=== PATIENT | female | born 1975 | race Caucasian/White ===

== ENCOUNTER 2018-03-15 08:45 | Inpatient (IN) | payer OTHER ==
[~2018-03-15] VITALS: Ht 157.5 cm; Wt 3.2 kg
[2018-03-15] MEDS ORDERED: PNV-FERROUS FU1 EACH PO (09:46)
== END 2018-03-21 11:43 | DRG 788 ==
LOC: LDR 03-18 18:35 → OB/GYN 03-18 18:35 → LDR 03-18 18:43 → OB/GYN 03-19 00:09
PROVIDERS: Obstetrics & Gynecology
PROC: 4A1HXCZ Monitoring of Products of Conception, Cardiac Rate, External Approach (ICD-10-PCS; 2018-03-18)
PROC: 10D00Z1 Extraction of Products of Conception, Low, Open Approach (ICD-10-PCS; principal; 2018-03-18 19:00)
DX: O82 Encounter for cesarean delivery without indication (principal); Z3A.39 39 weeks gestation of pregnancy; Z37.0 Single live birth; Z22.330 Carrier of Group B streptococcus